=== PATIENT | female | born 1945 | race Caucasian/White ===

== ENCOUNTER 2018-12-14 08:57 | Day surgery (SDC) | payer MEDICARE, BC ==
[2018-12-10 10:57] VITALS: BMI 21.4
[~2018-12-14 08:57] MED LIST: LACTATED RINGERS 1,000 ML IV SCH; LIDOCAINE 1% 20 ML VIAL (10MG/ML) FOR IV START INTRADERMA PRN
[2018-12-14 09:28] VITALS: RESP 18; TEMP 99
[2018-12-14] MEDS ORDERED: PROPOFOL 10 MG/ML 20 ML VIAL IV ONE (10:09)
[2018-12-14] MEDS ORDERED: LIDOCAINE 1% INJ 10MG/ML (20 ML MDV) ONE (10:09)
--- NOTE | 2018-12-14 10:41 | P.PCN ---
Date of Procedure: 12/14/18 Description of Procedure: BRIEF HISTORY: 73-year-old female who presents for outpatient EGD for evaluation of a constellation of symptoms including epigastric pain, unintentional weight loss, decreased appetite. The patient has a prior history of ulcers in the stomach and duodenum in 2013. She reports that recently over the past few months she has developed a abdominal pain in the epigastric region of her abdomen. She's had associated decreased oral intake with a 10 pound weight loss. She is also had episodes of nausea and vomiting. The patient is on Excedrin at home. Currently also taking omeprazole and Carafate. PROCEDURE PERFORMED: Esophagogastroduodenoscopy with biopsy. PREOPERATIVE DIAGNOSIS: Epigastric abdominal pain, history of gastric and duodenal ulcers, unintentional weight loss. ESTIMATED BLOOD LOSS: Minimal. IV sedation per anesthesia. PROCEDURE: After informed consent was obtained, the patient was brought into the endoscopy unit. IV sedation was administered by Anesthesia under continuous monitoring. Initially the Olympus GIF-190 video endoscope was inserted into the mouth. Esophagus intubated without any difficulty. It was gradually advanced into the stomach and duodenum and carefully examined. The second part of the duodenum appeared normal, however the duodenal sweep was somewhat deformed and narrowed likely secondary to prior ulcerations. A large ulcer was noted and encompassed parts of the duodenal bulb, pylorus and antrum, measuring approximately 3.5 cm in size. No high risk stigmata seen with minimal oozing from the ulcer with manipulation. Biopsies were taken around the ulcer. The scope was then withdrawn into the esophagus. Biopsies were taken of the antrum and body for mild scattered erythema suggestive of mild gastritis. There was retained food in the entire examined stomach. No other gross abnormalities were seen, however complete visualization was impaired by the retained food debris. The GE junction was located at 35 cm from the incisors and appeared somewhat irregular with biopsies taken to rule out Bejarano's esophagus. The esophagus appeared normal. There were no erosions or ulcerations seen and the patient tolerated the procedure well. IMPRESSION: 1. Large ulcer of the stomach and duodenal bulb, biopsied. No high-risk stigmata for bleeding noted. 2. Mild gastritis antrum body, biopsied. 3. Retained food debris in the stomach. 4. Deformed duodenal sweep, likely from prior ulceration. 5. GE junction biopsy. RECOMMENDATIONS: The findings of this examination were discussed with the patient. Okay to resume soft diet. Would increase PPI therapy to twice daily, with prescription for Protonix 40 mg twice a day given. Patient must stop all NSAID use and should have repeat scope in 10-12 weeks to check for ulcer healing..
[2018-12-14 10:53] VITALS: BP 104/50; PULSE 71
== END 2018-12-14 11:17 | disposition home or self-care (01) ==
LOC: ORWHC2ENDO 08:57
PROVIDERS: ATTEND Internal Medicine
DX: K29.50 Unspecified chronic gastritis without bleeding (principal); K25.9 Gastric ulcer, unspecified as acute or chronic, without hemorrhage or perforation; K44.9 Diaphragmatic hernia without obstruction or gangrene; K21.9 Gastro-esophageal reflux disease without esophagitis; Z87.11 Personal history of peptic ulcer disease; R63.4 Abnormal weight loss; Z68.21 Body mass index [BMI] 21.0-21.9, adult; Z79.1 Long term (current) use of non-steroidal anti-inflammatories (NSAID); Z79.899 Other long term (current) drug therapy; Z87.891 Personal history of nicotine dependence; Z96.653 Presence of artificial knee joint, bilateral
CPT/HCPCS: 88305; 43239; J2001; J2704

== ENCOUNTER 2021-03-03 15:00 | Emergency (ER) | payer MEDICARE, BC ==
[2021-03-03 15:28] VITALS: BP 136/67; PULSE 81; RESP 16; TEMP 98.3
[2021-03-03] MEDS ORDERED: KETOROLAC 15 MG/ML 1 ML VIAL IM STA (15:35)
--- NOTE | 2021-03-03 16:30 | ED ---
Upper Extremity HPI - General Chief Complaint: Extremity Injury, Upper Stated Complaint: fall, shoulder injury Time Seen by Provider: 03/03/21 15:35 Source: patient, family, RN notes reviewed Mode of arrival: wheelchair Limitations: physical limitation - History of Present Illness Initial Comments: Patient is a 75-year-old female that presents to the emergency department complaining of right upper arm pain. She notes she was walking in the mall when she slipped and fell landing on her arm. She noted that she feels like it is fractured at this time. She was holding ice onto it at this time of exam and interview. She had decreased range of motion due to reluctance in pain. She denied any other issues or complaints. She is otherwise well-appearing. She denied chest pain shortness of breath headache nausea vomiting diarrhea constipation fever fatigue chills. - Related Data Home Medications Medication Instructions Recorded Confirmed Omeprazole [PriLOSEC] 40 mg PO AC-BRKFST 10/07/13 12/10/18 Sucralfate [Carafate] 1 gm PO QID 10/07/13 12/10/18 atenoloL [Tenormin] 50 mg PO QAM 10/07/13 12/10/18 Acetaminophen [Tylenol Extra 500 - 1,000 mg PO Q6H PRN 11/26/18 12/14/18 Strength] Wqbxmov-Xqhg-Snbj [id number] 1 each PO Q6HR PRN 11/26/18 12/14/18 [Excedrin] Lisinopril-Hctz 10-12.5 mg 1 tab PO QAM 11/26/18 12/10/18 [Zestoretic 10-12.5] Previous Rx's Medication Instructions Recorded HYDROcodone/APAP 7.5-325MG [[place] 1 tab PO Q6HR PRN 3 Days #12 tab 03/03/21 7.5-325] Allergies Allergy/AdvReac Type Severity Reaction Status Date / Time No Known Allergies Allergy Verified 03/03/21 15:28 Review of Systems ROS Statement: Those systems with pertinent positive or pertinent negative responses have been documented in the HPI. ROS Other: All systems not noted in ROS Statement are negative. Past Medical History Past Medical History: GERD/Reflux, Hypertension Additional Past Medical History / Comment(s): Current abdominal pain often after eating. GASTRIC & DUODENAL ULCERS. History of Any Multi-Drug Resistant Organisms: None Reported Past Surgical History: Heart Catheterization, Joint Replacement, Orthopedic Surgery Additional Past Surgical History / Comment(s): EGD, bilateral knee replacements. right hip Past Anesthesia/Blood Transfusion Reactions: No Reported Reaction Past Psychological History: No Psychological Hx Reported Smoking Status: Former smoker Past Alcohol Use History: None Reported Past Drug Use History: None Reported - Past Family History Mother Family Medical History: No Reported History General Exam Limitations: physical limitation General appearance: alert, in no apparent distress Head exam: Present: atraumatic, normocephalic, normal inspection Eye exam: Present: normal appearance, PERRL, EOMI. Absent: scleral icterus, conjunctival injection, periorbital swelling ENT exam: Present: normal exam, mucous membranes moist Neck exam: Present: normal inspection. Absent: tenderness, meningismus, lymphadenopathy Respiratory exam: Present: normal lung sounds bilaterally. Absent: respiratory distress, wheezes, rales, rhonchi, stridor Cardiovascular Exam: Present: regular rate, normal rhythm, normal heart sounds. Absent: systolic murmur, diastolic murmur, rubs, gallop, clicks Extremities exam: Present: normal inspection, full ROM, normal capillary refill. Absent: tenderness, pedal edema, joint swelling, calf tenderness Right Shoulder Exam: Present: normal inspection. Absent: full ROM (Secondary to pain), tenderness, swelling, abrasion, laceration, ecchymosis, deformity, crepitus, dislocation Upper Arm exam: Present: normal inspection. Absent: full ROM, tenderness, swelling, abrasion, laceration, ecchymosis, deformity Vascular: Absent: vascular compromise Neurological exam: Present: alert, oriented X3 Psychiatric exam: Present: normal affect, normal mood Skin exam: Present: warm, dry, intact, normal color. Absent: rash Course Vital Signs 03/03/21 15:24 Temperature 98.3 F Pulse Rate 81 Respiratory 16 Rate Blood Pressure 136/67 O2 Sat by Pulse 96 Oximetry Procedures - Orthopedic Splinting/Casting Injury #1 Side: right Upper Extremity Injury Location: shoulder Upper Extremity Immobilizer: sling/shoulder immobilizer (Coaptation), Jj wrap, synthetic pre-padded splint Medical Decision Making - Medical Decision Making 75-year-old female complaining of right upper arm pain after falling at a mall. X-ray of the right humerus, 15 mg of Toradol ordered. X-ray shows a proximal humeral neck fracture. Swallow be applied along with a sling. Patient will be given orthopedic referral. Pain medication will be given. Case discussed with Dr. Culver outpatient discharge home. - Radiology Data Radiology results: report reviewed, image reviewed X-ray of the right humerus: Acute female that fracture without significant displacement. Disposition Clinical Impression: Closed fracture of right proximal humerus Disposition: HOME SELF-CARE Condition: Stable Instructions (If sedation given, give patient instructions): Arm Fracture in Adults (ED) Additional Instructions: Please return to the Emergency Department if symptoms worsen or any other concerns. Follow-up with primary care 1-2 days Follow-up with orthopedics in the next 1-2 days. Take Tylenol 3 as prescribed. Is patient prescribed a controlled substance at d/c from ED?: Yes When asked, does pt state using other controlled substances?: No If prescribed controlled substance>3 days was MAPS reviewed?: Prescribed <3 Days If opioid is for acute pain is fill amount 7 days or less?: Yes Referrals: Sebastian Hernandez MD [Primary Care Provider] - 1-2 days Hernesto Galeana PAC [PHYSICIAN GRASS CUTTER] - 1-2 days Time of Disposition: 17:03
[2021-03-03] MEDS ORDERED: ACET/COD 300 MG/30 MG STARTER PACK 6 TAB BTL PO STA (16:48)
--- NOTE | 2021-03-03 16:51 | XR ---
EXAMINATION TYPE: XR humerus RT DATE OF EXAM: 03/03/2021 COMPARISON: NONE HISTORY: Fall. Pain TECHNIQUE: 4 views FINDINGS: There is evidence of acute transverse fracture through the right humeral neck. There is no significant displacement. There is no dislocation. The elbow joint appears intact. IMPRESSION: Acute humeral neck fracture without significant displacement.
--- NOTE | 2021-03-03 16:53 | XR ---
EXAMINATION TYPE: XR shoulder complete RT DATE OF EXAM: 03/03/2021 COMPARISON: NONE HISTORY: Shoulder pain TECHNIQUE: 3 views FINDINGS: There is transverse fracture through the right humeral neck with comminution. There is no d islocation. There is displacement up to almost 1 cm. The scapula appears intact. AC joint is intact. IMPRESSION: Acute comminuted humeral neck fracture.
== END 2021-03-03 17:14 | disposition home or self-care (01) ==
LOC: EC 15:00
DX: S42.201A Unspecified fracture of upper end of right humerus, initial encounter for closed fracture (principal); I10 Essential (primary) hypertension; K21.9 Gastro-esophageal reflux disease without esophagitis; Z87.891 Personal history of nicotine dependence; Z79.82 Long term (current) use of aspirin; W01.0XXA Fall on same level from slipping, tripping and stumbling without subsequent striking against object, initial encounter; Y93.01 Activity, walking, marching and hiking; Y92.59 Other trade areas as the place of occurrence of the external cause
CPT/HCPCS: 73030; 73060; 99284; 96372; J1885

== ENCOUNTER 2023-12-15 15:14 | Emergency (ER) | payer MEDICARE, BC ==
[2023-12-15 15:22] VITALS: RESP 16
--- NOTE | 2023-12-15 15:23 | ED ---
Fall HPI - General Source: patient, RN notes reviewed Mode of arrival: wheelchair <Karla Arboleda - Last Filed: 12/15/23 15:30> <Zoya Hong - Last Filed: 12/16/23 00:27> - General Chief Complaint: Fall Stated Complaint: Fall-head injury Time Seen by Provider: 12/15/23 15:22 - History of Present Illness Initial Comments: Quick [id number]old female with a fall. States that she tripped landing on her head and injuring her bilateral hands. She denies loss of consciousness and remembers the fall. Is unaware when her last tetanus vaccination was. Denies blood thinner use. Currently is stating that she has pain over the bump on her forehead. Denies dizziness, lightheadedness, chest pain or chest pressure. (Karla Arboleda) 78-year-old female presenting with chief complaint of fall. Patient states that when she was standing up from the toilet she fell forward hitting her head and injuring her hands. She denies any loss of consciousness. No blood thinners. Unsure when her last tetanus vaccine was. There is currently a hematoma and laceration to the forehead. Admits to pain to the right hand. She denies any chest pain, difficulty breathing, abdominal pain, nausea, vomiting, dizziness. (Zoya Hong) - Related Data Home Medications Medication Instructions Recorded Confirmed Omeprazole [PriLOSEC] 40 mg PO AC-BRKFST 10/07/13 12/10/18 Sucralfate [Carafate] 1 gm PO QID 10/07/13 12/10/18 atenoloL [Tenormin] 50 mg PO QAM 10/07/13 12/10/18 Acetaminophen [Tylenol Extra 500 - 1,000 mg PO Q6H PRN 11/26/18 12/14/18 Strength] Zvstvdn-Arph-Igug [id number] 1 each PO Q6HR PRN 11/26/18 12/14/18 [Excedrin] Lisinopril-Hctz 10-12.5 mg 1 tab PO QAM 11/26/18 12/10/18 [Zestoretic 10-12.5] Previous Rx's Medication Instructions Recorded HYDROcodone/APAP 7.5-325MG [[place] 1 tab PO Q6HR PRN 3 Days #12 tab 03/03/21 7.5-325] Allergies Allergy/AdvReac Type Severity Reaction Status Date / Time No Known Allergies Allergy Verified 12/15/23 15:22 Review of Systems ROS Other: All systems not noted in ROS Statement are negative. <Karla Arboleda - Last Filed: 12/15/23 15:30> ROS Other: All systems not noted in ROS Statement are negative. <Zoya Hong - Last Filed: 12/16/23 00:27> ROS Statement: Those systems with pertinent positive or pertinent negative responses have been documented in the HPI. Past Medical History Past Medical History: GERD/Reflux, Hypertension Additional Past Medical History / Comment(s): Current abdominal pain often after eating. GASTRIC & DUODENAL ULCERS. History of Any Multi-Drug Resistant Organisms: None Reported Past Surgical History: Heart Catheterization, Joint Replacement, Orthopedic Surgery Additional Past Surgical History / Comment(s): EGD, bilateral knee replacements. right hip Past Anesthesia/Blood Transfusion Reactions: No Reported Reaction Past Psychological History: No Psychological Hx Reported Smoking Status: Former smoker Past Alcohol Use History: None Reported Past Drug Use History: None Reported - Past Family History Mother Family Medical History: No Reported History <Karla Arboleda - Last Filed: 12/15/23 15:30> General Exam Limitations: no limitations <Karla Arboleda - Last Filed: 12/15/23 15:30> Limitations: no limitations General appearance: alert, in no apparent distress Head exam: Present: normocephalic Expanded Head exam: Present: laceration, hematoma Eye exam: Present: normal appearance, PERRL Pupils: Present: normal accommodation Neck exam: Present: normal inspection. Absent: tenderness, meningismus Respiratory exam: Absent: respiratory distress Cardiovascular Exam: Present: regular rate Right Hand Wrist exam: Present: tenderness, swelling. Absent: full ROM Neurological exam: Present: alert, oriented X3 Expanded Eye Response: (4) open spontaneously Motor Response: (6) obeys commands Verbal Response: (5) oriented [place] Total: 15 Psychiatric exam: Present: normal affect, normal mood Expanded Type of lesion: Present: laceration <Zoya Hong - Last Filed: 12/16/23 00:27> - General Exam Comments Initial Comments: Visual Physical Exam Vital signs reviewed General: Well-appearing, nontoxic, no acute distress. Head: Normocephalic, traumatic hematoma over the right forehead with bleeding and ecchymosis Eyes: PERRLA, EOMI ENT: Airway patent Chest: Nonlabored breathing Skin: No visual rash, normal skin tone Neuro: Alert and oriented 3 Musculoskeletal: No gross abnormalities (Karla Arboleda) Course Vital Signs 12/15/23 12/15/23 15:18 18:08 Temperature 98.0 F 97.9 F Pulse Rate 85 81 Respiratory 16 16 Rate Blood Pressure 190/84 172/81 O2 Sat by Pulse 99 99 Oximetry Procedures - Laceration Laceration #1 Consent Obtained: verbal consent Indication: laceration Site: face Size (cm): 3 Description: flap Depth: simple, single layer Anesthetic Used: lidocaine 1%, without epi Anesthesia Technique: local infiltration Type of Sutures: nylon Size of Sutures: 5-0 Number of Sutures: 2 Technique: simple, interrupted Patient Tolerated Procedure: well - Orthopedic Splinting/Casting Injury #1 Side: right Upper Extremity Injury Location: hand Upper Extremity Immobilizer: volar splint <Zoya Hong - Last Filed: 12/16/23 00:27> Medical Decision Making <Karla Arboleda - Last Filed: 12/15/23 15:30> <Zoya Hong - Last Filed: 12/16/23 00:27> - Medical Decision Making I completed the quick note portion of this chart signed Karla Arboleda PA-C (Karla Arboleda) Was pt. sent in by a medical professional or institution ([facility], COUNTER MANAGER, urgent care, hospital, or intermediate...) When possible be specific @ -No Did you speak to anyone other than the patient for history (EMS, parent, family, police, friend...)? What history was obtained from this source @ -No Did you review nursing and triage notes (agree or disagree)? Why? @ -I reviewed and agree with nursing and triage notes Were old charts reviewed (outside hosp., previous admission, EMS record, old EKG, old radiological studies, urgent care reports/EKG's, intermediate records)? Report findings @ -No old charts were reviewed Differential Diagnosis (chest pain, altered mental status, abdominal pain women, abdominal pain men, vaginal bleeding, weakness, fever, dyspnea, syncope, headache, dizziness, GI bleed, back pain, seizure, CVA, palpatations, mental h ealth, musculoskeletal)? @ -Differential Musculoskeletal Muscular strain, contusion, ligament sprain, fracture, arthritis, septic arthritis, bursitis, cellulitis, muscle spasm, nerve compression, DVT, arterial occlusion, herpes zoster, electrolyte abnormality, tumor.... This is not meant to be in all inclusive list EKG interpreted by me (3pts min.). @ -As above X-rays interpreted by me (1pt min.). @ -X-ray of the hand shows spiral fracture of the mid diaphyseal third metacarpal. Oblique fracture proximal fourth metacarpal is present. No acute fracture or dislocation of the left hand. CT interpreted by me (1pt min.). @ -CT shows age-related atrophic and chronic small vessel ischemic change without acute intracranial process seen at this time. Cervical spine shows no evidence for acute fracture or subluxation Facial bone CT shows small fluid level seen at the right maxillary sinus. Anterior wall demonstrates angulation seen best on image [id number]. Fracture is difficult to exclude. In addition there is cortical osseous defect involving the superior medial orbital wall adjacent to the right frontal sinus. Opacification right frontal sinus. Right frontal scalp hematoma and laceration. No additional suspected fracture sites. Globes are symmetric and intact. Orbital floor is intact. Remaining paranasal sinuses are well aerated. U/S interpreted by me (1pt. min.). @ -None done What testing was considered but not performed or refused? (CT, X-rays, U/S, labs)? Why? @ -None What meds were considered but not given or refused? Why? @ -None Did you discuss the management of the patient with other professionals (professionals i.e. , PA, COUNTER MANAGER, lab, RT, psych nurse, social work manager, maintenance service technician, teacher, duty officer, field case manager)? Give summary @ -No Was smoking cessation discussed for >3mins.? @ -No Was critical care preformed (if so, how long)? @ -No Were there social determinants of health that impacted care today? How? (Homelessness, low income, unemployed, alcoholism, drug addiction, transportation, low edu. Level, literacy, decrease access to med. care, residential, rehab)? @ -No Was there de-escalation of care discussed even if they declined (Discuss DNR or withdrawal of care, Hospice)? DNR status @ -No What co-morbidities impacted this encounter? (DM, HTN, Smoking, COPD, CAD, Cancer, CVA, ARF, Chemo, Hep., AIDS, mental health diagnosis, sleep apnea, morbid obesity)? @ -None Was patient admitted / discharged? Hospital course, mention meds given and route, prescriptions, significant lab abnormalities, going to OR and other pertinent info. @ -78-year-old female presenting with chief complaint of fall. Patient fell forward hitting her head and injuring her hands. CT is negative for fracture or dislocation of the cervical spine or acute intracranial process. C-collar was removed. Patient does have a frontal hematoma and laceration. 2 sutures were used to help approximate the wound edges. Hand x-ray shows 2 fracture sites. She is placed in a volar splint. Facial bone CT shows possible areas of fracture including the anterior wall of the right maxillary sinus as well as the superior medial orbital wall adjacent to the right frontal sinus. Patient and daughter educated on these findings. Tetanus was updated. They are provided with orthopedic and ENT follow-up. Discharged home. Follow-up with PCP. Report back to ER with any new or worsening symptoms. Discussed return parameters and answered all questions. Patient conveyed verbal understanding and agreed to the plan. I discussed this case in detail with my attending Dr. Mora Undiagnosed new problem with uncertain prognosis? @ -No Drug Therapy requiring intensive monitoring for toxicity (Heparin, Nitro, Insulin, Cardizem)? @ -No Were any procedures done? @ -Laceration repair, splint applied Diagnosis/symptom? @ -Hand fracture, facial laceration, medial orbital wall fracture Acute, or Chronic, or Acute on Chronic? @ -Acute Uncomplicated (without systemic symptoms) or Complicated (systemic symptoms)? @ -Uncomplicated Side effects of treatment? @ -No Exacerbation, Progression, or Severe Exacerbation? @ -No Poses a threat to life or bodily function? How? (Chest pain, [place], [place], pneumonia, PE, COPD, DKA, ARF, appy, cholecystitis, CVA, Diverticulitis, Homicidal, Suicidal, threat to staff... and all critical care pts) @ -Low likelihood (Zoya Hong) Disposition <Karla Arboleda - Last Filed: 12/15/23 15:30> Is patient prescribed a controlled substance at d/c from ED?: No Time of Disposition: 17:52 <Zoya Hong - Last Filed: 12/16/23 00:27> Clinical Impression: Fall, Hand fracture, Facial laceration, Medial orbital wall fracture Disposition: HOME SELF-CARE Condition: Good Instructions (If sedation given, give patient instructions): Hand Fracture (ED), Facial Fracture (ED), Head Injury (ED) Additional Instructions: Follow-up with PCP, orthopedics, ENT. Report back to ER with any new or worsening symptoms. Do not blow your nose until seen by ENT. Keep the wound clean dry and covered. Wash regularly with soap and water. Avoid fully submerging the wound in water for prolonged periods of time. Monitor for signs of infection, including but not limited to redness, swelling, warmth, tenderness, discharge, fever. Sutures may be removed in 3-5 days Referrals: Sebastian Hernandez MD [Primary Care Provider] - 1-2 days Sarwat Zuñiga DO [Doctor of Osteopathic Medicine] - 1-2 days Anabel Huerta DO [Doctor of Osteopathic Medicine] - 1-2 days Socrates Brunner MD [STAFF PHYSICIAN] - 1-2 days
--- NOTE | 2023-12-15 16:34 | CT ---
EXAMINATION TYPE: CT brain mario villavicencio DATE OF EXAM: 12/15/2023 COMPARISON: None HISTORY: pain after fall. bloody laceration to head CT DLP: 995.[address] of the brain was performed. The ventricles, basal cisterns and sulci overlying the cerebral convexities demonstrate mild enlargem ent. There is no evidence for intracranial hemorrhage or sulcal effacement. There is decreased attenuatio n about the periventricular white matter and deep white matter of both cerebral hemispheres, compatib le with chronic small vessel ischemia. No mass effects are seen. If symptoms persist consider MRI. Osseous calvarium is intact. Right frontal scalp hematoma. IMPRESSION: 1. Age related atrophic and chronic small vessel ischemic change without acute intracranial process seen at this time. CT Cervical Spine: Unenhanced CT of the cervical spine was performed with bone and soft tissue window settings submitted . Coronal and sagittal reconstruction is obtained. There is normal alignment and prevertebral soft tissues. No evidence for acute cervical fracture . Scattered degenerative disc disease and spondylosis. Biapical scarring. IMPRESSION: 1. No evidence for acute fracture or subluxation of the cervical spine.
--- NOTE | 2023-12-15 16:40 | CT ---
EXAMINATION TYPE: CT facial bones wo con DATE OF EXAM: 12/15/2023 COMPARISON: None HISTORY: pain after fall. bloody laceration to head CT DLP: 995.[address] of the facial bones was performed in the axial and coronal planes. Bone and soft tissu e window settings are submitted. There is a small fluid level seen at the right maxillary sinus. Anterior wall demonstrates angulation seen best on image 43 of 92 sequence 212. Fracture is difficult to exclude. In addition there is cor tical osseous defect involving superior medial orbital wall adjacent to the right frontal sinus seen best on image 64 of 92 sequence 212. Opacification right frontal sinus. Right frontal scalp hematoma and laceration. No additional suspected fracture sites. Globes are symmetric and intact. Orbital floo rs intact. Remaining paranasal sinuses are well-aerated. IMPRESSION: 1. Subtle areas of fracture suspected as noted above.
--- NOTE | 2023-12-15 16:45 | XR ---
EXAMINATION TYPE: XR hand complete bilateral DATE OF EXAM: 12/15/2023 COMPARISON: None HISTORY: Pain TECHNIQUE: Three-view bilateral hands FINDINGS: : There is a spiral fracture of the mid diaphyseal third minute carpal. Oblique fracture proximal fou rth metacarpal is present. There is narrowing metacarpophalangeal joint space. Mild diffuse narrowing proximal distal interphala ngeal joint spaces is present. No acute fracture or dislocation of the left hand is evident. 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 Soft tissue swelling is . IMPRESSION: 1. Fracture mid diaphyseal third metacarpal. Nondisplaced fracture right fourth metacarpal is marina mahajan
[2023-12-15] MEDS: DIPH,PERTUS(ACELL)TETVAC-LF 0.5 ML VIAL IM ONE (18:01)
[2023-12-15 18:09] VITALS: BP 172/81; PULSE 81; TEMP 97.9
== END 2023-12-15 18:08 | disposition home or self-care (01) ==
LOC: EC 15:14
DX: S02.839A Fracture of medial orbital wall, unspecified side, initial encounter for closed fracture (principal); S62.354A Nondisplaced fracture of shaft of fourth metacarpal bone, right hand, initial encounter for closed fracture; S62.322A Displaced fracture of shaft of third metacarpal bone, right hand, initial encounter for closed fracture; S01.81XA Laceration without foreign body of other part of head, initial encounter; Z87.891 Personal history of nicotine dependence; Z23 Encounter for immunization; W01.198A Fall on same level from slipping, tripping and stumbling with subsequent striking against other object, initial encounter; Y92.091 Bathroom in other non-institutional residence as the place of occurrence of the external cause
CPT/HCPCS: 12013; 70450; 70486; 72125; 90471; 90715; 99284